=== PATIENT | female | born 1955 | race Caucasian/White ===

== ENCOUNTER 2017-12-11 06:32 | Emergency (ER) | payer BC ==
[2017-12-11] MEDS ORDERED: Ondansetron 8 MG Tab.DIS PO ONE (06:43)
[2017-12-11] MEDS ORDERED: Alum Hydroxide/Mag Hydroxide 15 ML, Lidocaine 2% 15 ML PO ONE ×2 (06:44)
--- NOTE | 2017-12-11 07:32 | EDM.PDOC ---
ED HPI GENERAL MEDICAL PROBLEM - General Chief Complaint: General Stated Complaint: STOMACH PAIN Time Seen by Provider: 12/11/17 07:15 Source of Information: Reports: Patient, RN History Limitations: Reports: No Limitations - History of Present Illness INITIAL COMMENTS - FREE TEXT/NARRATIVE: 62 yo female comes from work today with epigastric pain. Is on omeprazole 20 mg daily for this. Gets ? lower esophageal sphincter spasms about every 3 mos., usually at night. Eats here evening meal about 5 pm, goes to bed about 9 pm. No black or bloody stools. Today's attack is lasting longer than normal so she came to the ER. Had a lap Macarena for GERD in '00, thinks she may have had biopsies at that time and were apparently negative. Had only coffee this morning. Does not use NSAID's regularly. Does not smoke. No alcohol. Had some BP problems in the past, but thought this had been taken care of by cutting back on sodium. Has not had her BP checked in a couple yrs. Onset: Today, Other (episodic) Onset Date: 12/11/17 Duration: Hour(s): (1) Location: Reports: Abdomen (epigastrium) Quality: Reports: Other (squeezing) Severity: Moderate Improves with: Reports: Medication Worsens with: Reports: Other (unknown) Context: Reports: Other (Hx of lap Macarena) Associated Symptoms: Reports: No Other Symptoms Epigastric Pain Score (Numeric/FACES): 4 - Related Data Allergies Allergy/AdvReac Type Severity Reaction Status Date / Time morphine Allergy Stomach Verified 12/11/17 07:58 Upset Home Meds: Home Meds Omeprazole Magnesium [Prilosec Otc] 20 mg PO BEDTIME 12/11/17 [History] Social & Family History - Tobacco Use Smoking Status *Q: Never Smoker ED ROS GENERAL - Review of Systems Review Of Systems: See Below Constitutional: Reports: No Symptoms HEENT: Reports: No Symptoms Respiratory: Reports: No Symptoms Cardiovascular: Reports: No Symptoms Endocrine: Reports: No Symptoms GI/Abdominal: Reports: Abdominal Pain (epigastric). Denies: Black Stool, Bloody Stool, Constipation, Diarrhea, Decreased Appetite, Distension, Flatus, Hematemesis, Hematochezia, Melena, Nausea, Vomiting : Denies: No Symptoms Musculoskeletal: Reports: No Symptoms Skin: Reports: No Symptoms Neurological: Reports: No Symptoms ED EXAM, GENERAL - Physical Exam Exam: See Below Exam Limited By: No Limitations General Appearance: Alert, WD/WN, No Apparent Distress Eye Exam: Right Eye: Proptosis, Bilateral Eye: Normal Inspection Ears: Normal External Exam, Normal Canal, Hearing Grossly Normal Ear Exam: Bilateral Ear: Auricle Normal, Canal Normal Nose: Normal Inspection, Normal Mucosa, No Blood Throat/Mouth: Normal Inspection, Normal Lips, Normal Oropharynx, Normal Voice, No Airway Compromise Head: Atraumatic, Normocephalic Neck: Normal Inspection, Supple, Non-Tender Respiratory/Chest: No Respiratory Distress, Lungs Clear, Normal Breath Sounds, No Accessory Muscle Use, Chest Non-Tender Cardiovascular: Regular Rate, Rhythm, No Edema GI/Abdominal: Normal Bowel Sounds, Soft, Non-Tender, No Distention Back Exam: Normal Inspection. No: CVA Tenderness (R), CVA Tenderness (L) Extremities: Normal Inspection, Normal Range of Motion, Non-Tender, No Pedal Edema Neurological: Alert, Oriented, CN II-XII Intact, Normal Cognition, No Motor/ Sensory Deficits Psychiatric: Normal Affect, Normal Mood Skin Exam: Warm, Dry, Intact, Normal Color, No Rash Lymphatic: No Adenopathy Course - Vital Signs Text/Narrative:: Got significant relief with Maalox and Zofran ordered by Dr. Dee @ shift change. Best BP while here was 141/86 after sitting for 60 minutes Last Recorded V/S: Last Vital Signs Temp 36.5 C 12/11/17 06:50 Pulse 82 12/11/17 06:50 Resp 18 12/11/17 06:50 BP 144/81 H 12/11/17 07:14 Pulse Ox 100 12/11/17 06:50 - Orders/Labs/Meds Orders: Active Orders 24 hr Category Date Time Status HELICOBACTER PYLORI AG, STOOL [REF] Stat Lab 12/11/17 07:38 Received Labs: Laboratory Tests 12/11/17 12/11/17 Range/Units 07:40 07:40 WBC 6.1 (4.5-12.0) X10-3/uL RBC 5.01 (3.23-5.20) x10(6)uL Hgb 13.4 (11.5-15.5) g/dL Hct 40.4 (30.0-51.3) % MCV 80.7 (80-96) fL MCH 26.8 L (27.7-33.6) pg MCHC 33.3 (32.2-35.4) g/dL RDW 14.7 (11.5-15.5) % Plt Count 240 (125-369) X10(3)uL Sodium 141 (135-145) mmol/L Potassium 4.7 (3.5-5.3) mmol/L Chloride 103 (100-110) mmol/L Carbon Dioxide 27 (21-32) mmol/L BUN 18 (7-18) mg/dL Creatinine 0.8 (0.55-1.02) mg/dL Est Cr Clr Drug Dosing 61.09 mL/min Estimated GFR (MDRD) > 60 (>60) BUN/Creatinine Ratio 22.5 H (9-20) Glucose 114 (80-116) mg/dL Calcium 9.6 (8.6-10.2) mg/dL Amylase 30 (25-115) U/L Meds: Medications Discontinued Medications Generic Name Dose Route Start Last Admin Trade Name Gaudencioq PRN Reason Stop Dose Admin Al Hydroxide/Mg Hydroxide 15 0 ml 12/11/17 06:44 12/11/17 07:00 ml/ Lidocaine HCl 15 ml PO 12/11/17 06:45 30 ml ONETIME ONE Administration Ondansetron HCl 8 mg 12/11/17 06:43 12/11/17 06:47 Zofran Odt PO 12/11/17 06:44 8 mg ONETIME ONE Administration Departure - Departure Time of Disposition: 08:12 Disposition: Home, Self-Care 01 Condition: Good Clinical Impression: Epigastric pain HTN (hypertension) Qualifiers: Hypertension type: essential hypertension Qualified Code(s): I10 - Essential ( primary) hypertension - Discharge Information Referrals: PCP,None [Primary Care Provider] - Forms: ED Department Discharge - My Orders Last 24 Hours: My Active Orders 12/11/17 07:38 HELICOBACTER PYLORI AG, STOOL [REF] Stat - Assessment/Plan Last 24 Hours: My Active Orders 12/11/17 07:38 HELICOBACTER PYLORI AG, STOOL [REF] Stat
== END 2017-12-11 08:25 | disposition home or self-care (01) ==
LOC: FB.ED 06:32
DX: R10.13 Epigastric pain (principal); I10 Essential (primary) hypertension; Z88.5 Allergy status to narcotic agent
CPT/HCPCS: 36415; 80048; 82150; 82272; 85027; 87338; 99284; A9270

== ENCOUNTER 2021-06-01 08:28 | Day surgery (SDC) | payer BC ==
[2021-06-01] MEDS ORDERED: fentaNYL 100 MCG/2 ML SDV IV ONE (08:29)
[2021-06-01] MEDS ORDERED: Midazolam 1 MG/ML 2 ML SDV IV ONE (08:29)
[2021-06-01] MEDS ORDERED: Sodium Chloride 0.9% 10 ML Syringe FLUSH PRN (08:30)
[2021-06-01] MEDS ORDERED: Lactated Ringers 1,000 ML IV PRN (08:30)
[2021-06-01] MEDS ORDERED: acetaZOLAMIDE 500 MG Cap.ER PO ONE (10:30)
--- NOTE | 2021-06-02 16:09 | OR ---
DATE OF OPERATION: 06/01/2021 SURGEON: Salome Anderson MD PREOPERATIVE DIAGNOSIS: Visually significant cataract, right eye. POSTOPERATIVE DIAGNOSIS: Visually significant cataract, right eye. PROCEDURES PERFORMED: Phacoemulsification with intraocular lens placement, right eye. ASSISTANTS: None. ANESTHESIA: Local with sedation. COMPLICATIONS: None. BLOOD LOSS: None. IMPLANTS: Pre-loaded JEREL ZCB00 24.0 diopter lens implanted. CDE: 3.10. DESCRIPTION OF PROCEDURE: After risks and benefits were reviewed with the patient, consent was obtained in the preoperative area, and the operative eye was marked with a surgical pen. In the preoperative area, a pledget was used to dilate the pupil consisting of a mixture of phenylephrine 10%, cyclopentolate 2%, moxifloxacin 0.5%, and bupivacaine 0.75%. The patient was taken to the operating room, where a time-out was performed, and the patient was placed under monitored anesthesia care. Topical tetracaine was used for anesthesia. The operative eye was prepped and draped for ophthalmic surgery, and the microscope was brought into position and focused. A paracentesis incision was made, followed by injection of preservative-free 1% lidocaine into the anterior chamber, followed by injection of Viscoat into the anterior chamber. A microkeratome blade was used to make a corneal limbal incision temporally. A cystotome was used to make the beginning of the capsulorrhexis, which was carried around 360 degrees in a curvilinear fashion using Utrata forceps. A Grewal cannula with BSS was used to hydrodissect and hydrodelineate the nucleus. The nucleus was removed in a divide and conquer manner using phacoemulsification. Irrigation and aspiration were used to remove the remaining cortical material. Provisc was used to inflate the capsular bag, and a pre-loaded JEREL ZCB00 24.0 diopter lens, serial number [id number] was injected into the capsular bag. A Sinskey hook was used to position and center the lens. Next, irrigation and aspiration was used to remove any remaining viscoelastic and cortical material from the anterior chamber. BSS on a cannula was used to inflate the anterior chamber and hydrate the wound. The wound was checked and found to be watertight. 1 mg of Moxifloxacin was injected into the anterior chamber. Drapes were removed and the eye was cleaned. A drop of brimonidine 0.2% and a drop of TobraDex was placed. The eye was shielded, and the patient was taken to the recovery room in stable condition. /[id number] SYLVIA/KAREL
== END 2021-06-01 10:58 | disposition home or self-care (01) ==
LOC: FB.SDS 08:28
PROVIDERS: ATTEND Ophthalmology
DX: H25.813 Combined forms of age-related cataract, bilateral (principal); H25.22 Age-related cataract, morgagnian type, left eye; H01.001 Unspecified blepharitis right upper eyelid; H01.004 Unspecified blepharitis left upper eyelid; H02.831 Dermatochalasis of right upper eyelid; H02.834 Dermatochalasis of left upper eyelid; K21.9 Gastro-esophageal reflux disease without esophagitis; I10 Essential (primary) hypertension; Z98.890 Other specified postprocedural states; Z79.899 Other long term (current) drug therapy; Z79.82 Long term (current) use of aspirin; Z88.5 Allergy status to narcotic agent; Z88.1 Allergy status to other antibiotic agents
CPT/HCPCS: 00142; 66984; A9270; J2250; J3010; V2632